=== PATIENT | female | born 1935 | race Two or more races ===

== ENCOUNTER 2018-05-13 11:20 | Inpatient (IN) | payer MEDICARE ==
[~2018-05-13] VITALS: Ht 167.6 cm; Wt 63.0 kg
[2018-05-13] MEDS ORDERED: SODIUM CHLORIDE 0.9% 1,000 ML IV ONE (13:04)
[2018-05-13] MEDS ORDERED: FENTANYL CITRATE/PF 50MCG/ML 2ML VIAL IV ONE (13:15)
[2018-05-13] MEDS ORDERED: ONDANSETRON HCL 4MG/2ML INJ IV ONE (13:15)
[2018-05-13] MEDS ORDERED: HYDROMORPHONE HCL/PF 2MG/ML CPJ IV ONE (15:00)
[2018-05-13 15:56] LABS: CLARITY URINE CLEAR (CLEAR); COLOR URINE YELLOW (YELLOW); KETONES URINE NEGATIVE (NEGATIVE); LEUKOCYTE ESTERASE URINE 1+ (NEGATIVE); NITRITE URINE NEGATIVE (NEGATIVE); OCCULT BLOOD URINE 2+ (NEGATIVE); PROTEIN URINE NEGATIVE (NEGATIVE); SPECIFIC GRAVITY URINE 1.019 (1.005-1.030); UROBILINOGEN URINE 0.2 E.U./dL (0.2-1.0)
[2018-05-13 16:07] LABS: BASOPHILS % 0.8 % (0.0-2.0); EOSINOPHILS % 1.3 % (0.0-5.0); HEMATOCRIT. 37.4 % (36.0-48.0); HEMOGLOBIN. 12.4 g/dL (12.0-16.0); LYMPHOCYTES % 14.3 % (20.0-50.0); MEAN CORPUSCULAR HEMOGLOBIN 32.1 pg (28.0-32.0); MEAN PLATELET VOLUME 8.9 fl (7.4-10.4); NEUTROPHILS % 75.6 % (40.0-76.0); PLATELET 170 x1000/uL (130-400); RED BLOOD CELL COUNT 3.86 mill/uL (4.2-5.4); RED CELL DISTRIBUTION WIDTH 14.1 % (11.6-14.6)
[2018-05-13 16:11] LABS: CHLORIDE 109 mEq/L (98-107)
[2018-05-13] MEDS ORDERED: CEFTRIAXONE 1 G PREMIX 50 ML IV SCH (16:45)
[2018-05-13] MEDS ORDERED: HYDROMORPHONE HCL/PF 2MG/ML CPJ IV SCH (16:45)
[2018-05-13] MEDS ORDERED: MAGNESIUM/ALUMINUM HYDROXIDE/SIMETHICONE 30ML UDC PO PRN (18:15)
[2018-05-13] MEDS ORDERED: DOCUSATE SODIUM 100MG CAPSULE PO PRN (18:15)
[2018-05-13] MEDS ORDERED: ACETAMINOPHEN 325MG TABLET PO PRN (18:15)
[2018-05-13] MEDS ORDERED: GUAIFENESIN 200MG/10ML SUGAR FREE UDC PO PRN (18:15)
[2018-05-13] MEDS ORDERED: LORAZEPAM 2MG/ML CPJ IV PRN (18:15)
[2018-05-13] MEDS ORDERED: IPRATROPIUM/ALBUTEROL 0.5-3(2.5)MG/3ML NEB INH PRN (18:15)
[2018-05-13] MEDS ORDERED: HYDRALAZINE 20MG/ML VIAL IV PRN (18:15)
[2018-05-13] MEDS ORDERED: LEVOFLOXACIN 500MG PREMIX 100 ML IV SCH ×3 (18:15→23:00)
[2018-05-13] MEDS ORDERED: HYDROCODONE/ACETAMINOPHEN 5/325MG TABLET PO PRN (18:15)
[2018-05-13] MEDS ORDERED: ONDANSETRON HCL 4MG/2ML INJ IV PRN (18:15)
[2018-05-13] MEDS: ENOXAPARIN 40MG/0.4ML SYR SUBCUT SCH (21:00)
[2018-05-13 21:35] VITALS: BP 169/115
[2018-05-13] MEDS: HYDROMORPHONE HCL/PF 2MG/ML CPJ IV PRN (22:19)
[2018-05-13] MEDS: CLONIDINE 0.1MG TABLET PO PRN (22:27)
[2018-05-13] MEDS: SODIUM CHLORIDE 0.9% INJ 3ML FLUSH IVF SCH (22:29)
[2018-05-14] VITALS: BP 143/73
[2018-05-14 00:42] LABS: CREATINE KINASE MB FRACTION < 1.0 ng/mL (0.5-3.6)
[2018-05-14 00:47] LABS: CREATINE KINASE 66 IU/L (26-192)
[2018-05-14] MEDS: HYDROMORPHONE HCL/PF 2MG/ML CPJ IV PRN ×4 (01:27→14:11)
[2018-05-14 04:00] VITALS: BP 141/77
[2018-05-14] MEDS: SODIUM CHLORIDE 0.9% INJ 3ML FLUSH IVF SCH ×3 (05:00→22:28)
[2018-05-14 06:22] LABS: BASOPHILS % 0.5 % (0.0-2.0); EOSINOPHILS % 2.7 % (0.0-5.0); HEMATOCRIT. 34.9 % (36.0-48.0); HEMOGLOBIN. 11.6 g/dL (12.0-16.0); LYMPHOCYTES % 20.6 % (20.0-50.0); MEAN CORPUSCULAR HEMOGLOBIN 32.2 pg (28.0-32.0); MEAN CORPUSCULAR VOLUME 96.6 fL (81.0-99.0); MEAN PLATELET VOLUME 9.4 fl (7.4-10.4); MONOCYTES % 10.1 % (2.0-8.0); NEUTROPHILS % 66.1 % (40.0-76.0); PLATELET 158 x1000/uL (130-400); RED BLOOD CELL COUNT 3.61 mill/uL (4.2-5.4); RED CELL DISTRIBUTION WIDTH 13.8 % (11.6-14.6)
[2018-05-14 06:24] LABS: CHLORIDE 105 mEq/L (98-107)
[2018-05-14 06:39] LABS: CREATINE KINASE 42 IU/L (26-192)
[2018-05-14 06:41] LABS: T4 FREE 1.36 ng/dL (0.76-1.46)
[2018-05-14 06:42] LABS: CREATINE KINASE MB FRACTION < 1.0 ng/mL (0.5-3.6)
[2018-05-14 08:00] VITALS: BP 177/98
[2018-05-14] MEDS: ASPIRIN 81MG EC TABLET PO SCH (09:18)
[2018-05-14 12:00] VITALS: BP 157/90
[2018-05-14] MEDS ORDERED: LEVO88TA7 MT (12:44)
[2018-05-14] MEDS ORDERED: APIX5TAB PO (14:30)
[2018-05-14 16:00] VITALS: BP 152/87
[2018-05-14] MEDS ORDERED: LEVO88TA7 PO (17:26)
[2018-05-14] MEDS ORDERED: CHOL100022 PO (17:26)
[2018-05-14] MEDS ORDERED: HYDR-4009 MT (17:26)
[2018-05-14] MEDS ORDERED: NIFE20CA PO (17:26)
[2018-05-14] MEDS ORDERED: NITR0.4T49 SL (17:26)
[2018-05-14] MEDS ORDERED: METO-411 PO (17:26)
[2018-05-14] MEDS ORDERED: BUDE6HFA INH (17:26)
[2018-05-14] MEDS ORDERED: ASPI-1158 PO (17:26)
[2018-05-14] MEDS ORDERED: ATOR-2 PO (17:26)
[2018-05-14] MEDS ORDERED: ISOS60TA4 PO (17:26)
[2018-05-14 20:00] VITALS: BP 172/88
[2018-05-14] MEDS: ENOXAPARIN 40MG/0.4ML SYR SUBCUT SCH (20:25)
[2018-05-14] MEDS: CLONIDINE 0.1MG TABLET PO PRN (20:25)
[2018-05-14] MEDS ORDERED: LEVOFLOXACIN 250MG PREMIX 50 ML IV SCH (23:00)
[2018-05-15] VITALS (7 sets, daily range): BP systolic 93–161; BP diastolic 55–85
[2018-05-15] MEDS: SODIUM CHLORIDE 0.9% INJ 3ML FLUSH IVF SCH (05:07)
[2018-05-15] MEDS: HYDROMORPHONE HCL/PF 2MG/ML CPJ IV PRN ×2 (05:08→10:07)
[2018-05-15] MEDS: ASPIRIN 81MG EC TABLET PO SCH (08:19)
== END 2018-05-15 17:00 | disposition home or self-care (01) | DRG 690 ==
LOC: ER 14:53 → 7WST 17:48 → EDBEDREQ 17:51 → ENRESERV 20:44
PROVIDERS: ADMIT Internal Medicine; ATTEND Internal Medicine
DX: N39.0 Urinary tract infection, site not specified (principal); M25.421 Effusion, right elbow; W19.XXXA Unspecified fall, initial encounter; I10 Essential (primary) hypertension; E78.5 Hyperlipidemia, unspecified; Y92.009 Unspecified place in unspecified non-institutional (private) residence as the place of occurrence of the external cause; Z79.01 Long term (current) use of anticoagulants; Z79.51 Long term (current) use of inhaled steroids; Z90.49 Acquired absence of other specified parts of digestive tract; Z90.710 Acquired absence of both cervix and uterus; Z95.0 Presence of cardiac pacemaker; Z95.2 Presence of prosthetic heart valve; Y93.89 Activity, other specified; Y99.8 Other external cause status; Z79.82 Long term (current) use of aspirin; Z79.899 Other long term (current) drug therapy
CPT/HCPCS: 36415; 71045; 72170; 73030; 73070; 73100; 82550; 82553; 83880; 84439; 84443; 84484; 93005; 96361; 96365; 96375; 99285; J0696; J1170; J1650; J1956; J2405; J3010; J7030